=== PATIENT | female | born 1995 | race Caucasian/White ===

== ENCOUNTER 2017-12-13 21:43 | Emergency (ER) | payer MEDICAID, OTHER | END 2017-12-14 00:06 | disposition left against medical advice (07) | DX: O46.92 Antepartum hemorrhage, unspecified, second trimester (principal); Z3A.19 19 weeks gestation of pregnancy; R82.79 Other abnormal findings on microbiological examination of urine ==

== ENCOUNTER 2018-11-18 16:17 | Emergency (ER) | payer MEDICAID, OTHER ==
[~2018-11-18] VITALS: Ht 162.6 cm; Wt 69.9 kg
[2018-11-18 17:03] LABS: APPEARANCE,URINE Cloudy (CLEAR); BILIRUBIN,URINE Negative (NEGATIVE); BLOOD, URINE Large Ery/uL (NEGATIVE); COLOR,URINE Yellow (YELLOW); KETONES,URINE Trace (NEGATIVE); LEUKOCYTE ESTERASE ,URINE Negative (NEGATIVE); NITRITE, URINE Negative (NEGATIVE); PH,URINE 5.5 (5.0-8.0); PROTEIN,URINE Negative (NEGATIVE); UGLUCOSE Negative (NEGATIVE); UROBILINOGEN,URINE 0.2 EU/dL (0.2)
[2018-11-18 17:03] LABS: BASOPHILS % (AUTO) 0.2 % (0.0-2.0); EOSINOPHILS % (AUTO) 2.7 % (0.0-6.0); HEMATOCRIT 36 % (33-45); HEMOGLOBIN 12.1 g/dL (11.5-14.8); LYMPHOCYTES # (AUTO) 1.7 /CMM (0.8-4.8); LYMPHOCYTES % (AUTO) 30.7 % (20.0-44.0); MEAN CORPUSCULAR HGB CONC 34 g/dl (31.0-36.0); MEAN CORPUSCULAR VOLUME 88 fL (82-100); MONOCYTES # (AUTO) 0.7 /CMM (0.1-1.30); MONOCYTES % (AUTO) 13.1 % (2.0-12.0); NEUTROPHILS % (AUTO) 53.3 % (43.0-81.0); PLATELET COUNT (AUTO) 225 /CMM (150-450); RED BLOOD CELL COUNT(AUTO) 4.05 MIL/uL (4.0-5.2); WHITE BLOOD COUNT (AUTO) 5.6 K/uL (4.3-11.0)
[2018-11-18 17:14] LABS: BACTERIA,URINE Few /HPF (None Seen); RBC,URINE 21-50 /HPF (0-2); SQUAMOUS EPITHELIAL CELL,UR Few /HPF (None Seen); WBC,URINE 0-2 /HPF (0-3)
[2018-11-18 17:28] LABS: CALCIUM, SERUM 8.5 mg/dL (8.5-10.1); CREATININE 0.7 mg/dL (0.6-1.3); POTASSIUM 3.4 mmol/L (3.5-5.1)
[2018-11-18 17:39] LABS: ALBUMIN 3.9 g/dL (3.4-5.0); BILIRUBIN,DIRECT 0.1 mg/dL (0.0-0.2); BILIRUBIN,TOTAL 0.4 mg/dL (0.2-1.0); TOTAL PROTEIN, SERUM 7.5 g/dL (6.4-8.2)
--- NOTE | 2018-11-18 18:10 | NUR ---
PT BIBS AXOX4 C/O VAGINAL BLEEDING, -SOB, - LOC,
--- NOTE | 2018-11-18 18:29 | NUR ---
Patient discharged to home in stable condition. Written and verbal after care instructions given. Patient verbalizes understanding of instruction.
[2018-11-18 18:36] VITALS: BP 126/82
== END 2018-11-18 18:38 | disposition home or self-care (01) ==
LOC: ER 16:20
DX: N93.8 Other specified abnormal uterine and vaginal bleeding (principal)
CPT/HCPCS: 36415; 80048; 80076; 81001; 84703; 85025; 85730; 87086; 99283; A6403; 81000-TC

== ENCOUNTER 2019-06-09 08:53 | Emergency (ER) | payer SELFPAY ==
[~2019-06-09] VITALS: Ht 162.6 cm; Wt 77.1 kg
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
--- NOTE | 2019-06-09 09:21 | NUR ---
URINE SENT TO LAB
[2019-06-09 12:09] VITALS: BP 121/71
== END 2019-06-09 12:10 | disposition home or self-care (01) ==
LOC: ER 08:56
DX: S05.12XA Contusion of eyeball and orbital tissues, left eye, initial encounter (principal); Y04.0XXA Assault by unarmed brawl or fight, initial encounter; Y93.89 Activity, other specified; Y92.89 Other specified places as the place of occurrence of the external cause; Y99.8 Other external cause status
CPT/HCPCS: 70450-TC; 70486-TC; 84703-TC

== ENCOUNTER 2021-12-09 20:45 | Emergency (ER) | payer MEDICAID ==
[~2021-12-09] VITALS: Ht 165.1 cm; Wt 70.3 kg
[2021-12-09 21:26] VITALS: BP 123/77
[2021-12-09] MEDS ORDERED: PERM60CR6 TP (21:54)
== END 2021-12-09 22:48 | disposition home or self-care (01) ==
LOC: ER 20:50
DX: L29.9 Pruritus, unspecified (principal); Z60.2 Problems related to living alone

== ENCOUNTER 2022-07-03 16:31 | Emergency (ER) | payer MEDICAID, OTHER ==
[~2022-07-03] VITALS: Ht 162.6 cm; Wt 77.1 kg
[~2022-07-03 16:31] MED LIST: PERM60CR6 TP
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
[2022-07-03] MEDS ORDERED: GUAI600T53 PO (18:35)
[2022-07-03] MEDS ORDERED: BENZ200C53 PO (18:35)
[2022-07-03 19:00] VITALS: BP 122/84
--- NOTE | 2022-07-03 19:00 | NUR ---
Patient discharged to home in stable condition. Written and verbal after care instructions given. Patient verbalizes understanding of instruction.
== END 2022-07-03 19:01 | disposition home or self-care (01) ==
LOC: ER 16:31
DX: B34.9 Viral infection, unspecified (principal); R05.9 Cough, unspecified

== ENCOUNTER 2024-03-29 02:22 | Emergency (ER) | payer OTHER ==
[~2024-03-29] VITALS: Ht 162.6 cm; Wt 77.1 kg
[~2024-03-29 02:22] MED LIST changes: +BENZ200C53 PO; +GUAI600T53 PO
[2024-03-29] MEDS ORDERED: TDAP [DIPH/PERTUSSIS/TET] 0.5 ML VIAL IM ONE (03:21)
[2024-03-29] MEDS: TDAP [DIPH/PERTUSSIS/TET] 0.5 ML VIAL IM ONE (03:25)
[2024-03-29 05:45] VITALS: BP 116/78; TEMP 98; O2SAT 99
== END 2024-03-29 05:45 ==
LOC: ER 02:24
DX: S01.312A Laceration without foreign body of left ear, initial encounter (principal); S50.812A Abrasion of left forearm, initial encounter; Y04.2XXA Assault by strike against or bumped into by another person, initial encounter; Y93.89 Activity, other specified; Y92.89 Other specified places as the place of occurrence of the external cause; Y99.8 Other external cause status
CPT/HCPCS: 70450-TC; 70486-TC; 72125-TC; 90715